=== PATIENT | female | born 1990 ===

== ENCOUNTER 2023-05-18 00:03 | Emergency (ER) | payer MEDICAID, SELFPAY ==
[2023-05-18 00:19] VITALS: BP 147/78; BP 160/80; PULSE 74; PULSE 88; RESP 16; TEMP 36.6; O2SAT 100; O2SAT 98; BMI 26.4
--- NOTE | 2023-05-18 00:25 | PC.NURSE ---
Triage pt and notified Ismael Sterling
[2023-05-18 00:27] LABS: MANUAL DIFF FLAG NO
[2023-05-18 00:29] LABS: Basophils Absolute Auto 0.1 X10*3/uL (0.0-0.2); Basophils Percent Auto 0.9 % (0-2); Eosinophils Absolute Auto 0.2 X10*3/uL (0.0-0.4); Eosinophils Percent Auto 1.8 % (0-4); Hematocrit 44.8 % (37.0-47.0); Hemoglobin 14.8 g/dl (12.0-16.0); Imm Gran Abs Auto 0.03 X10*3/uL (0.00-0.03); Imm Gran Pct Auto 0.3 % (0.0-0.4); Lymphocytes Absolute Auto 3.5 X10*3/uL (1.2-4.9); Lymphocytes Percent Auto 35.5 % (20-40); Mean Corpuscular Hemoglobin 28.3 pg (27.0-33.0); Mean Corpuscular Volume 85.7 fL (80.0-98.0); Monocytes Absolute Auto 0.7 X10*3/uL (0.1-1.2); Monocytes Percent Auto 7.1 % (2-11); Neutrophils Absolute Auto 5.3 x10*3/uL (2.0-8.3); Neutrophils Percent Auto 54.4 % (45-73); Platelet Count 257 X10*3/uL (160-400); Red Blood Count 5.23 X10*6/uL (4.20-5.50); Red Cell Distribution Width 13.1 % (11.0-16.0); White Blood Count 9.7 X10*3/uL (4.8-10.8)
[2023-05-18 01:27] LABS: Alanine Aminotransferase 13 U/L (0-31); Albumin Level 4.4 g/dL (3.5-5.0); Alkaline Phosphatase 77 U/L (39-117); Anion Gap 15 (12-20); Aspartate Amino Transferase 13 U/L (5-31); Blood Urea Nitrogen 16 mg/dL (9-16); Calcium 10.5 mg/dL (8.4-10.2); Carbon Dioxide 23 mmol/L (22-29); Chloride 107 mmol/L (96-108); Creatinine Clr Calc Pharmacy 95.3; Estimated Glomerular Filt Rate > 60; Glucose Random 123 mg/dL (60-115); Potassium 3.5 mmol/L (3.3-5.1); Sodium 141 mmol/L (135-145); Total Protein 7.1 g/dL (6.5-8.0)
--- NOTE | 2023-05-18 01:53 | ED.CHESTPAIN ---
HPI - Chest Pain General Chief Complaint: Chest Pain Stated Complaint: palpitations Time Seen by Provider: 05/18/23 00:06 Source: patient and family Mode of arrival: ambulatory History of Present Illness HPI narrative: 33-year-old female with past personal history having cardiac surgery for PDA closure and has otherwise been healthy since that time, denies any medical conditions, does not use any alcohol, cigarettes, drugs. In states that for the past 3-5 days she has been experiencing intermittent chest palpitations associated with shortness of breath and chest discomfort. Patient also is somewhat concerned regarding early cardiac disease in her family with father having a heart condition at the age of 51 and her brother who is 2 years older was recently diagnosed with an [place]. no symptoms of diarrhea, heat intolerance. Related Data Allergies Allergy/AdvReac Type Severity Reaction Status Date / Time morphine [MORPHINE] Allergy Severe UNSURE Unverified 07/29/20 15:49 Morphine Sulfate Allergy Unknown Uncoded 02/07/12 00:00 Review of Systems Review of Systems: Pertinent positives and negatives as stated in HPI PMFSH Past Medical History Source: nursing notes reviewed Social History Social History Advance Directives: No Advance Directives Information Provided: Yes Physical Exam Vital Signs: Vital Signs: Last Vital Signs Temp 98.3 F 05/18/23 01:59 Pulse 77 05/18/23 01:59 Resp 17 05/18/23 01:59 BP 136/80 05/18/23 01:59 Pulse Ox 96 05/18/23 01:59 O2 Del Method Room Air 05/18/23 01:59 BMI result Body Mass Index 26.4 VITAL SIGNS: Reviewed. GENERAL: Well developed, well nourished, in no acute distress. HEAD: Normocephalic/atraumatic EYES: PERRLA, EOMI EARS: Ext canals without abnormality NOSE: Nares patent bilateral OROPHARYNX: no oral lesions noted, posterior pharynx clear NECK: Supple, no adenopathy LUNGS: Normal breath sounds. No adventitious sounds or accessory muscle use. SpO2<96> CARDIOVASCULAR: Regular rate and rhythm without noted murmurs, no JVD or lower extremity edema. ABDOMEN: Soft, non-tender, non-distended with bowel sounds. MUSCULOSKELETAL: No tenderness, deformities, or effusions noted on gross inspection. EXTREMITIES: No cyanosis, clubbing or edema. SKIN: Inspection of the skin reveals no rashes NEUROLOGIC: Alert and oriented x 4. Strength and sensation to light touch were grossly intact x 4. Medical Decision Making Medical Decision Making MDM Narrative: 33-year-old female with history and clinical presentation, differential diagnosis: Infection, anemia, electrolyte abnormalities, benign palpitations such as PVCs, no clinical suspicion for pulmonary or ACS etiologies. Patient did experience palpitations well here in the emergency room but both significant other and patient states that her heart rate did not change. Differential Diagnosis Please see the discussion above Admission/Observation Consideration of admission/observation: Escalation of care including admission/observation considered Lab Data Please see the discussion above 05/18/23 00:22 05/18/23 00:52 Labs: Lab Results 05/18/23 05/18/23 05/18/23 Range/Units 00:22 00:28 00:28 WBC 9.7 (4.8-10.8) X10*3/uL RBC 5.23 (4.20-5.50) X10*6/uL Hgb 14.8 (12.0-16.0) g/dl Hct 44.8 (37.0-47.0) % MCV 85.7 (80.0-98.0) fL MCH 28.3 (27.0-33.0) pg MCHC 33.0 (31.0-35.0) g/dl RDW 13.1 (11.0-16.0) % Plt Count 257 (160-400) X10*3/uL MPV 11.0 (9.4-12.3) fL Immature Gran % (Auto) 0.3 (0.0-0.4) % Neut % (Auto) 54.4 (45-73) % Lymph % (Auto) 35.5 (20-40) % [place] % (Auto) 7.1 (2-11) % Eos % (Auto) 1.8 (0-4) % Baso % (Auto) 0.9 (0-2) % Lymph # (Auto) 3.5 (1.2-4.9) X10*3/uL [place] # (Auto) 0.7 (0.1-1.2) X10*3/uL Eos # (Auto) 0.2 (0.0-0.4) X10*3/uL Baso # (Auto) 0.1 (0.0-0.2) X10*3/uL Abs Immat Gran (auto) 0.03 (0.00-0.03) X10*3/uL Absolute Neuts (auto) 5.3 (2.0-8.3) x10*3/uL Absolute Nucleated RBC 0.000 (0.0-0.012) X10*3/uL Nucleated RBC % (auto) 0.0 (0.0-0.2) /100WBC Sodium (135-145) mmol/L Potassium (3.3-5.1) mmol/L Chloride (96-108) mmol/L Carbon Dioxide (22-29) mmol/L Anion Gap (12-20) BUN (9-16) mg/dL Creatinine (0.5-1.4) mg/dL Estim Creat Clear Calc Estimated GFR Random Glucose (60-115) mg/dL Calcium (8.4-10.2) mg/dL Total Bilirubin (0.0-1.0) mg/dL AST (5-31) U/L ALT (0-31) U/L Alkaline Phosphatase (39-117) U/L Total Protein (6.5-8.0) g/dL Albumin (3.5-5.0) g/dL Urine Color Yellow Urine Appearance Clear Urine pH 6.5 (5.0-9.0) Ur Specific [place] <= 1.005 (1.005-1.025) Urine Protein Negative (Neg-Trace) mg/dL Urine Glucose (UA) Negative (Negative) mg/dL Urine Ketones Negative (Negative) mg/dL Urine Blood Negative (Negative) Urine Nitrite Negative (Negative) Ur Leukocyte Esterase Negative (Negative) Urine Opiates Screen Not Detected (Not Detect) Urine Fentanyl Screen Not Detected (Not Detect) Ur Barbiturates Screen Not Detected (Not Detect) Ur Phencyclidine Scrn Not Detected (Not Detect) Ur Amphetamines Screen Not Detected (Not Detect) U Benzodiazepines Scrn Not Detected (Not Detect) Urine Cocaine Screen Not Detected (Not Detect) U Marijuana (THC) Screen Not Detected (Not Detect) 05/18/23 Range/Units 00:52 WBC (4.8-10.8) X10*3/uL RBC (4.20-5.50) X10*6/uL Hgb (12.0-16.0) g/dl Hct (37.0-47.0) % MCV (80.0-98.0) fL MCH (27.0-33.0) pg MCHC (31.0-35.0) g/dl RDW (11.0-16.0) % Plt Count (160-400) X10*3/uL MPV (9.4-12.3) fL Immature Gran % (Auto) (0.0-0.4) % Neut % (Auto) (45-73) % Lymph % (Auto) (20-40) % [place] % (Auto) (2-11) % Eos % (Auto) (0-4) % Baso % (Auto) (0-2) % Lymph # (Auto) (1.2-4.9) X10*3/uL [place] # (Auto) (0.1-1.2) X10*3/uL Eos # (Auto) (0.0-0.4) X10*3/uL Baso # (Auto) (0.0-0.2) X10*3/uL Abs Immat Gran (auto) (0.00-0.03) X10*3/uL Absolute Neuts (auto) (2.0-8.3) x10*3/uL Absolute Nucleated RBC (0.0-0.012) X10*3/uL Nucleated RBC % (auto) (0.0-0.2) /100WBC Sodium 141 (135-145) mmol/L Potassium 3.5 (3.3-5.1) mmol/L Chloride 107 (96-108) mmol/L Carbon Dioxide 23 (22-29) mmol/L Anion Gap 15 (12-20) BUN 16 (9-16) mg/dL Creatinine 0.71 (0.5-1.4) mg/dL Estim Creat Clear Calc 95.3 Estimated GFR > 60 Random Glucose 123 H (60-115) mg/dL Calcium 10.5 H (8.4-10.2) mg/dL Total Bilirubin 1.0 (0.0-1.0) mg/dL AST 13 (5-31) U/L ALT 13 (0-31) U/L Alkaline Phosphatase 77 (39-117) U/L Total Protein 7.1 (6.5-8.0) g/dL Albumin 4.4 (3.5-5.0) g/dL Urine Color Urine Appearance Urine pH (5.0-9.0) Ur Specific [place] (1.005-1.025) Urine Protein (Neg-Trace) mg/dL Urine Glucose (UA) (Negative) mg/dL Urine Ketones (Negative) mg/dL Urine Blood (Negative) Urine Nitrite (Negative) Ur Leukocyte Esterase (Negative) Urine Opiates Screen (Not Detect) Urine Fentanyl Screen (Not Detect) Ur Barbiturates Screen (Not Detect) Ur Phencyclidine Scrn (Not Detect) Ur Amphetamines Screen (Not Detect) U Benzodiazepines Scrn (Not Detect) Urine Cocaine Screen (Not Detect) U Marijuana (THC) Screen (Not Detect) Independent Interpretation I performed an independent interpretation of an: EKG Interpretation: Sinus rhythm, HR-68, no STEMI, [place]/QRS/QTC is within normal limits. Discharge Plan Discharge Clinical Impression: Palpitation Patient Disposition: Home, Self-Care Instructions: Heart Palpitations (ED) Additional Instructions: 1. You have been provided with a referral to follow-up with cardiology and I recommend that you call the office this morning to see if they can provide you with an appointment for re-evaluation further outpatient management. Return to the ER for any worsening symptoms. Referrals: Brian Rollins MD [Physician] -
[2023-05-18 01:59] VITALS: BP 136/80; PULSE 77; RESP 17; TEMP 36.8; O2SAT 96
[2023-05-18 02:54] LABS: Thyroid Stimulating Hormone 2.23 uIU/mL (0.32-4.0)
== END 2023-05-18 02:50 | disposition home or self-care (01) ==
PROVIDERS: Emergency Provider Student in an Organized Health Care Education/Training Program
DX: R07.89 Other chest pain (principal); R00.2 Palpitations; Z79.899 Other long term (current) drug therapy
CPT/HCPCS: 36415; 80053; 80307; 81003; 84443; 85025; 93005; 99202; 99283; 99284

== ENCOUNTER → 2023-09-24 08:59 | Outpatient (REF) | payer OTHER, SELFPAY ==
--- NOTE | 2023-09-24 09:02 | CA_ITS ---
Transthoracic Echocardiogram Patient (Last, First, Middle): Jennifer Burton, Gender: Female Date of : 1990 Age: 33 Procedure Date: 09/24/2023 Procedure Type: Transthoracic Echocardiogram Location: OP Height: 154.94 cm Weight: 65.77 kg BSA: 1.65 m2 Heart Rate: bpm BP: 125 / 76 mmHg Patient Observation Assistant: ELIDIA/CHRISTINE Referring MD: Brian Rollins MD Symptoms: R06.02 - Shortness of breath Study Quality: Adequate ECG Rhythm: Sinus Conclusions: - The left ventricular systolic function is normal. The calculated ejection fraction is 62% by biplane method. - No obvious valvular pathology seen on this study. - Hx of PDA transcatheter repair, but not well visualized. Findings Left Ventricle Normal left ventricular cavity size. There is normal left ventricular wall thickness. The left ventricular systolic function is normal. The calculated ejection fraction is 62% by biplane method. There is no evidence of regional wall motion abnormalities. Diastolic function is normal for age. Right Ventricle Normal right ventricular cavity size and systolic function. Atria Both atria are normal in size. Aortic Valve There is a normal trileaflet aortic valve. There is no aortic valve stenosis. There is no aortic valve regurgitation. Mitral Valve The mitral valve appears normal. There is trace mitral valve regurgitation. There is no mitral valve stenosis. Pulmonic Valve The pulmonic valve is likely normal. Tricuspid Valve There is trace tricuspid valve regurgitation. There is no evidence of pulmonary hypertension. Great Vessels The asc aorta is normal in size. Venous The inferior vena cava is normal in size and collapses greater than 50% with inspiration. Pericardium/Pleural There is no evidence of pericardial effusion. Prior Study Comparison No prior study available for comparison. Recommendations, Care & Conclusions No obvious valvular pathology seen on this study. Measurements 2D Linear Measurements IVSd: 0.61 0.6-0.9/0.6-1.0 cm LVIDd: 4.10 3.9-5.3/4.2-5.9 cm LVIDd Index: 2.48 2.4-3.2/2.2-3.1 cm/m2 LVIDs: 2.72 2.0-3.6 cm LVPWd: 1.09 0.7-1.1 cm LA Diam: 2.50 2.7-3.8/3.0-4.0 cm LAIDs Index: 1.52 1.5-2.3 cm/m2 LV Mass: 131.03 67-162/88-224 g LV Mass Index: 79.41 43-95/49-115 g/m2 LVOT Diam: 1.80 3.0+(-)1.3 cm 2D Systolic Function EF 4C: 61.20 >55% EF 2C: 62.80 >55% EF BiP: 62.20 >55% Mitral Valve MV Pk E: 1.20 MV PK A: 0.80 MV Decel Time: 183.00 E/A: 1.50 E'Lateral: 17.60 E'Medial: 10.90 E/E' Med: 11.00 E/E' Lat: 6.80 PHT: 54.00 MVA PHT: 4.07 Decel Arthur: 6.57 Aortic Valve AoV Pk Jordan: 1.51 AoV Mn [place]: 1.03 AoV VTI: 0.31 AoV Pk Grad: 9.00 Aov Mn Grad: 5.00 RAYMUNDO Cont.VTI: 2.25 LVOT LVOT Pk [place]: 1.28 LVOT Mn [place]: 0.93 LVOT VTI: 0.28 LVOT Pk Grad: 7.00 LVOT Mn Grad: 4.00 LVOT Diam: 1.80 LVOT Area: 2.54 Diastolic Function MV Pk E: 1.20 MV Pk A: 0.80 E/A: 1.50 E'Medial: 10.90 E/E' Med: 11.00 E' Laterial: 17.60 E/E' Lat: 6.80 Right Ventricle TAPSE (mm): 19.20 TVS' [place]: 14.30 Tricuspid Valve TR Pk [place]: 1.32 TR Pk Grad: 7.00 RA Press: 3.00 RVSP: 10.00 Great Vessels Aorta Sinus of Valsalva: 2.78 2.0-3.[address] [place]: 2.16 1.7-3.4 cm Ao Asc: 2.90 2.1-3.4 cm [place] QP:QS: 1.60 Updated in Other Vendor System with Status of Final Brian Rollins MD electronically signed on 09/24/2023 12:11:28 PM with status of Final
--- NOTE | 2023-09-24 09:02 | HM_ITS ---
* Total monitoring time 6 days and 19 hours. * Underlying rhythm is sinus. Average ventricular rate 84/Min. Range 60 to 140/Min. * Very rare supraventricular and ventricular ectopy. * No sustained arrhythmias. * No significant pauses or AV blocks. * No patient markers or events in diary. MTDD
== END ==
LOC: HO.CARD 08:59
PROVIDERS: Visit Provider Internal Medicine
DX: R00.2 Palpitations (principal); R06.02 Shortness of breath; Z87.74 Personal history of (corrected) congenital malformations of heart and circulatory system
CPT/HCPCS: 93242; 93306

== ENCOUNTER → 2023-09-24 09:02 | Outpatient (BNV) | payer OTHER, SELFPAY | PROVIDERS: Visit Provider Internal Medicine | DX: I47.10 Supraventricular tachycardia, unspecified (principal) | CPT/HCPCS: 93244; 93306 ==